=== PATIENT | female | born 1940 | race Caucasian/White ===

== ENCOUNTER → 2017-06-19 | Day surgery (SDC) | payer MEDICARE ==
[~2017-06-19] VITALS: Ht 157.5 cm; Wt 60.0 kg
[~2017-06-19] MED LIST: AMPICILLIN/SULBAC 3 GM/NS 100 ML IV SCH; CALC600T25 PO; CALC600T34 PO; CELE20TA PO; CHLORHEXIDINE GLUCONATE 2 % 1 PACK (2 CLOTHS) TOPICAL PRN; CHOL5000 PO; GLUC100017 PO; GLUCCAP PO; INSULIN HUMAN REGULAR 1,000 UNITS/10 ML VIAL SQ PRN; LACTATED RINGER'S 1000 ML IV PRN; LIDOCAINE 1%/EPINEPHrine 1:100,000 SOLN 30 ML VIAL ONE; LOVA20TA PO; METOPROLOL TARTRATE 25 MG TAB PO PRN; MULTTAB67 PO; MUPIROCIN 2% OINT 22 GM TUBE ONE; OMEP20TA PO; ONDANSETRON HCL 4 MG/2 ML VIAL IV PUSH ONE; PERC5TAB12 PO; POVIDONE IODINE 5% (ANTISEPSIS KIT) 4 APPLICATIONS EACH NARE PRN; PROPOFOL 200 MG/20 ML AMP IV ONE; SODIUM CHLORID 0.9% 500 ML IV PRN
[2017-06-19 10:40] VITALS: BP 108/58; PULSE 55; RESP 15; TEMP 97.8; O2SAT 98
--- NOTE | 2017-06-19 16:55 | EKG ---
Date Performed: 06/19/2017 Time Performed: 07:18:12 PTAGE: 76 years EKG: SINUS BRADYCARDIA MARKED LEFT AXIS DEVIATION PATTERN CONSISTENT WITH PULMONARY DISEASE MODE RATE T-WAVE ABNORMALITY, CONSIDER ANTERIOR ISCHEMIA Compared to previous tracing, the patient is now bradycardic ABNORMAL ECG PREVIOUS TRACING : 08/30/2011 21.29 DOCTOR: Katherine Lu Interpretating Date/Time 06/19/2017 16:54:21
--- NOTE | 2017-07-10 13:16 | MP ---
cc: MIRYAM DUBON M.D. DATE OF SURGERY June 19, [address] Miryam Dubon PREOPERATIVE DIAGNOSIS Cutaneous lesion right ear canal. POSTOPERATIVE DIAGNOSIS Cutaneous lesion right ear canal. OPERATION PERFORMED Excision of cutaneous lesion right ear canal. INDICATIONS Documented in the history and physical. DESCRIPTION OF OPERATION The patient was taken to OR #2 and placed in the supine position following induction of general anesthesia and intubation using a laryngeal mask apparatus. The ear was examined under a microscope and cleaned with a curette. The canal ng were injected with a total of 2 mL of 1% Xylocaine with epinephrine 1:100,000. She was then prepped and draped for surgery. Under microscopic examination the lesion in the 6 o'clock position in the floor of the meatus of the ear canal was excised using a Rincon blade. This was carried down into the subcutaneous fat. The wound was then cauterized with needle tip Bovie at 12 tristan. The procedure was terminated. The patient was reversed from anesthesia, taken to recovery in good condition. No complications. Blood loss less than 5 mL. Miryam Dubon MD JMHiro/SSB /7:39 AM /1:07 PM
== END | disposition home or self-care (01) ==
LOC: PHSDC 06:15
PROVIDERS: ATTEND Otolaryngology
DX: L91.0 Hypertrophic scar (principal); H93.8X1 Other specified disorders of right ear; R94.31 Abnormal electrocardiogram [ECG] [EKG]
CPT/HCPCS: 00120; 69145; 88305; 93005; J0295; J2405; J3010; J7120